=== PATIENT | female | born 1950 | race Caucasian/White ===

== ENCOUNTER → 2023-11-13 | Day surgery (SDC) | payer MEDICARE, OTHER ==
[~2023-11-13] MED LIST: ALPRAZolam 0.25 MG TAB PO PRN; ALPRAZolam 0.5 MG TAB PO PRN; ASPIRIN 325 MG TAB PO ONE; ATORVASTATIN 80 MG TAB PO ONE; HEPARIN SODIUM,PORCINE (1 ML) 2,500 UNIT in SODIUM CHLORIDE 0.9% 250 ML IRRIGATION PRN; HEPARIN SODIUM,PORCINE 10,000 UNIT in SODIUM CHLORIDE 0.9% 1,000 ML IRRIGATION PRN; NITROGLYCERIN SL TABS 0.4 MG TAB SUBLINGUAL PRN
[2023-11-13 10:39] LABS: Glucose,Whole Blood 198 mg/dL (70-110)
[2023-11-13 10:47] LABS: Basophils # (A) 0.1 k/uL (0-0.2); Basophils % (A) 1 %; Eosinophils # (A) 0.3 k/uL (0-0.7); Eosinophils % (A) 4 %; HCT 36.3 % (34.0-46.0); HGB 11.6 gm/dL (11.4-16.0); Lymphocytes # (A) 1.2 k/uL (1.0-4.8); Lymphocytes % (A) 16 %; MCH 31.1 pg (25.0-35.0); MCHC 31.9 g/dL (31.0-37.0); MCV 97.4 fL (80.0-100.0); Mean Platelet Volume 8.8; Monocytes # (A) 0.4 k/uL (0-1.0); Monocytes % (A) 6 %; Neutrophils # (A) 5.2 k/uL (1.3-7.7); Neutrophils % (A) 70 %; Platelet Count 219 k/uL (150-450); RBC 3.72 m/uL (3.80-5.40); RDW 13.4 % (11.5-15.5); WBC 7.4 k/uL (3.8-10.6)
[2023-11-13] MEDS: SODIUM CHLORIDE 0.9% 1,000 ML in EMPTY BAG 1 BAG IV SCH (10:58)
[2023-11-13 11:13] LABS: African American GFR (CKD) 73 (>60 ml/min/1.73 sqM); Anion Gap 3 mmol/L; Blood Urea Nitrogen 24 mg/dL (7-17); Calcium 9.1 mg/dL (8.4-10.2); Carbon Dioxide 30 mmol/L (22-30); Chloride 101 mmol/L (98-107); Glucose 187 mg/dL (74-99); Non-African American GFR(CKD) 64 (>60 ml/min/1.73 sqM); Potassium 4.8 mmol/L (3.5-5.1); Sodium 134 mmol/L (137-145)
[2023-11-13 11:14] VITALS: BP 177/79; PULSE 52; RESP 18; TEMP 97.5
== END ==
LOC: CATHCVL 10:06
PROVIDERS: ATTEND Internal Medicine Interventional Cardiology
DX: Z53.8 Procedure and treatment not carried out for other reasons (principal); I25.10 Atherosclerotic heart disease of native coronary artery without angina pectoris; I48.0 Paroxysmal atrial fibrillation; I65.23 Occlusion and stenosis of bilateral carotid arteries; E11.9 Type 2 diabetes mellitus without complications; I10 Essential (primary) hypertension; E78.5 Hyperlipidemia, unspecified; G47.33 Obstructive sleep apnea (adult) (pediatric); Z95.5 Presence of coronary angioplasty implant and graft; Z79.82 Long term (current) use of aspirin; Z79.899 Other long term (current) drug therapy
CPT/HCPCS: 80048; 85025

== ENCOUNTER 2023-11-14 08:25 | Day surgery (SDC) | payer MEDICARE, OTHER ==
[2023-11-14] MEDS ORDERED: ALPRAZolam 0.5 MG TAB PO PRN (08:49)
[2023-11-14] MEDS ORDERED: NITROGLYCERIN SL TABS 0.4 MG TAB SUBLINGUAL PRN (08:49)
[2023-11-14 09:02] LABS: Glucose,Whole Blood 203 mg/dL (70-110)
[2023-11-14] MEDS: INSULIN ASPART (NovoLOG) 100 UNIT/ML VIAL SQ ONE (09:21)
[2023-11-14 09:36] VITALS: RESP 16; TEMP 98.1
[2023-11-14] MEDS: SODIUM CHLORIDE 0.9% 1,000 ML IV ONE (09:36)
[2023-11-14] MEDS: hydrALAZINE HCL 20 MG/ML 1 ML VIAL ONE (10:03)
[2023-11-14] MEDS: ASPIRIN 325 MG TAB PO STA (10:03)
[2023-11-14] MEDS: SODIUM CHLORIDE 0.9% 1,000 ML in EMPTY BAG 1 BAG IV SCH (10:03)
[2023-11-14] MEDS ORDERED: fentaNYL (PF) 50 MCG/ML 2 ML AMP ONE (11:01)
[2023-11-14] MEDS: LIDOCAINE 2% (PF) 20 MG/ML 5 ML VIAL SQ ONE (11:29)
[2023-11-14] MEDS: MIDAZOLAM 2 MG/2 ML VIAL IVP ONE ×4 (11:29→11:53)
[2023-11-14] MEDS: fentaNYL (PF) 50 MCG/1 ML VIAL IVP ONE (11:29)
[2023-11-14] MEDS: hydrALAZINE HCL 20 MG/ML 1 ML VIAL IVP ONE ×2 (11:40→11:49)
[2023-11-14] MEDS ORDERED: hydrALAZINE HCL 20 MG/ML 1 ML VIAL ONE (11:44)
[2023-11-14] MEDS ORDERED: ENALAPRILAT 1.25 MG/ML 1 ML VIAL ONE (11:46)
[2023-11-14] MEDS: ENALAPRILAT 1.25 MG/ML 1 ML VIAL IVP ONE (11:54)
[2023-11-14] MEDS: HEPARIN SODIUM 1,000 UN/ML (10ML VL) IVP ONE (11:56)
[2023-11-14] MEDS ORDERED: RX INFO: IV CONTRAST WAS GIVEN 1 EACH MISC MISCELLANE PRN (12:07)
[2023-11-14] MEDS: IOPAMIDOL-370 100ML BTL INTRATHECA ONE (12:07)
--- NOTE | 2023-11-14 12:12 | P.PCN ---
Date of Procedure: 11/14/23 Operative Findings: CARDIAC CATHETERIZATION PERFORMING PHYSICIAN: Alfredo Henriquez MD, RPVI PROCEDURE PERFORMED: 1. Selective right and left coronary angiogram 2. Left heart catheterization 3. IFR of the RCA 4. Ultrasound-guided access of the right common femoral artery and right radial artery and right common femoral artery angiogram INDICATION: Abnormal myocardial perfusion imaging stress test with high risk features concerning for severe underlying coronary artery disease with evidence of large anterior ischemia and this is 73-year-old female patient who was symptomatic with intermittent episodes of heart racing and fluttering also shortness of breath with exertion. The patient is known to have coronary artery disease with prior stenting of the LAD COMPLICATION: None APPROACH: Right common femoral artery LEVEL OF SEDATION: Moderate with sedation in length of 36 minutes PROCEDURE DESCRIPTION: After obtaining an informed consent, the patient was brought to cardiac labeling machine operator. Local anesthesia was performed using lidocaine subcutaneously. Initially the right radial artery was cannulated using micropuncture technique under ultrasound guidance micropuncture wire passed easily then I placed a 6 [place] 11 cm sheath at the right radial artery. Attempting passing an 035 wire to the aorta was unsuccessful and angiogram was performed and showed possibly occluded right innominate artery versus right subclavian artery and for that reason a right radial approach was aborted and we decided to go from the right groin The right common femoral artery was cannulated using Seldinger technique, the guidewire passed easily, following that we advanced a 6 [place] sheath dilator assembly, the wire and dilator were removed and sheath was flushed. Selective right and left coronary angiogram using a 6-[place] JR4 and JL catheters. Following that we did left heart catheterization using 6-[place] pigtail catheter. The procedure was completed there was no complication. SELECTIVE CORONARY ANGIOGRAM: The right coronary artery: Large-caliber vessel and a dominant vessel. The RCA has intermediate lesion in the midportion documented to be nonflow limiting by Doppler wire with IFR of 0.96 Left main: Large-caliber vessel and appeared to be angiographically normal The left circumflex: Medium caliber vessel nondominant vessel with no high-grade stenosis The left anterior descending artery: Large caliber vessel. The mid LAD by the bifurcation of a large diagonal branch has intermediate to severe lesion appears to be in the range of 60 to 70% has not changed compared to before 11 years ago. Distal LAD stent appeared to be patent HEMODYNAMICS: The LVEDP was 13 mmHg with no significant gradient across aortic valve CONCLUSION: 1. Intermediate to severe disease involving the mid LAD by the bifurcation of a large diagonal branch appears to be unchanged compared to before. Patent stent in the distal LAD 2. Normal left sided filling pressure 3. Possibly occluded right subclavian versus innominate artery POSTPROCEDURE MANAGEMENT: Medical treatment
[2023-11-14] MEDS: SODIUM CHLORIDE 0.9% 1,000 ML IV SCH (12:30)
[2023-11-14] MEDS: ALPRAZolam 0.25 MG TAB PO PRN (13:26)
[2023-11-14 17:35] VITALS: BP 149/76; PULSE 59
[2023-11-15] MEDS ORDERED: HEPARIN SODIUM,PORCINE (1 ML) 2,500 UNIT in SODIUM CHLORIDE 0.9% 250 ML IRRIGATION PRN (07:00)
[2023-11-15] MEDS ORDERED: HEPARIN SODIUM,PORCINE 10,000 UNIT in SODIUM CHLORIDE 0.9% 1,000 ML IRRIGATION PRN (07:00)
== END 2023-11-14 16:37 | disposition home or self-care (01) ==
LOC: CATHCVL 08:25
PROVIDERS: ATTEND Internal Medicine Interventional Cardiology
DX: I25.10 Atherosclerotic heart disease of native coronary artery without angina pectoris (principal); I10 Essential (primary) hypertension; E78.5 Hyperlipidemia, unspecified; I48.0 Paroxysmal atrial fibrillation; G47.33 Obstructive sleep apnea (adult) (pediatric); I65.23 Occlusion and stenosis of bilateral carotid arteries; E11.9 Type 2 diabetes mellitus without complications; Z95.5 Presence of coronary angioplasty implant and graft; Z79.82 Long term (current) use of aspirin; Z79.84 Long term (current) use of oral hypoglycemic drugs; Z79.01 Long term (current) use of anticoagulants; Z79.899 Other long term (current) drug therapy
CPT/HCPCS: 93458; 93799; 76937; C1760; C1887 ×2; C1769 ×4; C1894 ×2; J2250; J0360; J1644; Q9967; J2001; J3010